=== PATIENT | female | born 1970 | race Caucasian/White ===

== ENCOUNTER 2016-08-11 08:33 | Emergency (ER) | payer OTHER, BC ==
[~2016-08-11 08:33] MED LIST: AMBIEN10 M1 PO; AMBIEN5 MG PO; EFFEXOR XR75 M1 PO; EFFEXOR XR75 MG PO; IMITREX25 M1 PO; IMITREX25 MG PO; NECON1 EACH PO; OCELLA PO
[2016-08-11] MEDS ORDERED: TOPAMAX25 M3 PO (08:54)
== END 2016-08-11 11:22 ==
LOC: EDMED 08:33
DX: S09.90XA Unspecified injury of head, initial encounter (principal); S01.511A Laceration without foreign body of lip, initial encounter; S80.02XA Contusion of left knee, initial encounter; Z87.891 Personal history of nicotine dependence; V49.40XA Driver injured in collision with unspecified motor vehicles in traffic accident, initial encounter; Y92.410 Unspecified street and highway as the place of occurrence of the external cause